=== PATIENT | male | born 1985 ===

== ENCOUNTER 2019-12-17 04:35 | Emergency (ER) | payer SELFPAY ==
--- NOTE | 2019-12-18 13:43 | EKG ---
Test Reason : Blood Pressure : / mmHG Vent. Rate : 066 BPM Atrial Rate : 066 BPM P-R Int : 134 ms QRS Dur : 088 ms QT Int : 352 ms P-R-T Axes : -04 -07 030 degrees QTc Int : 369 ms Normal sinus rhythm Normal ECG Confirmed by MARTINE HEATH ([id number]), image editor EVERETT LUNA ([id number]) on 12/18/2019 1:43:05 PM Referred By: Confirmed By:MARTINE HEATH
== END 2019-12-17 04:55 | disposition home or self-care (01) ==
LOC: ERS 04:35
DX: I10 Essential (primary) hypertension (principal); Z79.899 Other long term (current) drug therapy
CPT/HCPCS: 93005